=== PATIENT | male | born 1950 | race Caucasian/White ===

== ENCOUNTER 2016-11-07 17:36 | Emergency (ER) | payer OTHER ==
[~2016-11-07] VITALS: Ht 182.9 cm; Wt 86.3 kg
[~2016-11-07 17:36] MED LIST: .; ADVAIR 250/501 DISK IH; ALBUTEROL17 GM IH; ASPIR-LOW81 MG PO; ASPIR-TRIN325 M1 PO; Aspirin E.C. PO; CATAPRES0.1 MG PO; COUMADIN5 MG PO; Cipro PO; Combivent IH; Folvite PO; K-DUR20 MEQ PO; K-Dur PO; KEFLEX500 MG PO; Keppra PO; LEVAQUIN750 MG PO; LEVETIRACETAM500 MG PO; LEVOFLOXACIN750 MG PO; LIBRIUM25 MG PO; LIPITOR20 MG PO; LOPRESSOR25 MG PO; LOVENOX150 MG/1 M SC; METHADONE HCL10 MG PO; METHADONE10 MG; METHADONE10 MG PO; MYCOSTATIN15 GM PO; Methadone PO; NAPROSYN500 MG PO; NEURONTIN300 MG PO; NO HOME MEDS; NO MEDS; NOHOMEMEDS; NORVASC5 MG PO; NYSTATIN60 GM TP; OXYCONTIN80 MG; OXYCONTIN80 MG PO; OxyCONTIN PO; PERCOCET 5/31 TABLET PO; PREDNISONE10 MG PO; PROVENTIL,2.5 MG/3 M IH; SPIRIVA1 INHALATI IH; THERAGRAN1 TABLET PO; THIAMINE HCL100 MG PO; THIAMINE,VITAM100 MG PO; Theragran PO; Thiamine,Vitamin B1 PO; Toprol XL PO; VENTOLIN HFA18 GM IH; ZOFRAN ODT4 MG PO; ZOFRAN4 MG PO; [UNRECOGNIZED DRUG - CODE]; no home meds
[2016-11-07 21:37] VITALS: BP 126/74
== END 2016-11-07 21:40 | disposition home or self-care (01) ==
LOC: EME 17:36
DX: F10.229 Alcohol dependence with intoxication, unspecified (principal); J44.9 Chronic obstructive pulmonary disease, unspecified; M79.7 Fibromyalgia; B19.20 Unspecified viral hepatitis C without hepatic coma; Z86.73 Personal history of transient ischemic attack (TIA), and cerebral infarction without residual deficits; Z95.1 Presence of aortocoronary bypass graft; F17.200 Nicotine dependence, unspecified, uncomplicated
CPT/HCPCS: 99281; 99283

== ENCOUNTER 2016-11-08 00:39 | Emergency (ER) | payer OTHER ==
[~2016-11-08] VITALS: Ht 182.9 cm; Wt 90.4 kg
[2016-11-08 00:45] VITALS: BP 132/72
== END 2016-11-08 06:15 | disposition home or self-care (01) ==
LOC: EME 00:39
DX: F10.20 Alcohol dependence, uncomplicated (principal); Z95.1 Presence of aortocoronary bypass graft; Z87.891 Personal history of nicotine dependence
CPT/HCPCS: 99281; 99283

== ENCOUNTER 2016-11-08 19:18 | Emergency (ER) | payer OTHER ==
[~2016-11-08] VITALS: Ht 177.8 cm; Wt 96.3 kg
[2016-11-09 03:34] VITALS: BP 119/70
== END 2016-11-09 03:35 | disposition home or self-care (01) ==
LOC: EME 19:18
DX: F10.129 Alcohol abuse with intoxication, unspecified (principal); Z88.6 Allergy status to analgesic agent
CPT/HCPCS: 99281; 99282

== ENCOUNTER 2016-11-09 18:14 | Emergency (ER) | payer OTHER ==
[~2016-11-09] VITALS: Ht 177.8 cm; Wt 96.3 kg
[2016-11-10 10:17] VITALS: BP 152/88
== END 2016-11-10 10:17 | disposition home or self-care (01) ==
LOC: EME 18:14
DX: F10.120 Alcohol abuse with intoxication, uncomplicated (principal); S00.01XA Abrasion of scalp, initial encounter; X58.XXXA Exposure to other specified factors, initial encounter; J43.9 Emphysema, unspecified; J44.9 Chronic obstructive pulmonary disease, unspecified; I25.10 Atherosclerotic heart disease of native coronary artery without angina pectoris; Z87.891 Personal history of nicotine dependence; Z88.6 Allergy status to analgesic agent; Z88.4 Allergy status to anesthetic agent
CPT/HCPCS: 70450; 99281; 99283

== ENCOUNTER 2016-11-10 20:45 | Emergency (ER) | payer OTHER ==
[~2016-11-10] VITALS: Ht 182.9 cm; Wt 90.0 kg
[2016-11-11 09:50] VITALS: BP 168/88
== END 2016-11-11 09:51 | disposition home or self-care (01) ==
LOC: EME 20:45
DX: F10.229 Alcohol dependence with intoxication, unspecified (principal); Z59.0 Homelessness; Z87.891 Personal history of nicotine dependence
CPT/HCPCS: 99281; 99283

== ENCOUNTER 2016-11-11 17:12 | Emergency (ER) | payer OTHER ==
[~2016-11-11] VITALS: Ht 170.2 cm; Wt 95.3 kg
[2016-11-11 19:21] VITALS: BP 148/78
== END 2016-11-11 19:50 | disposition home or self-care (01) ==
LOC: EME 17:12
DX: F10.129 Alcohol abuse with intoxication, unspecified (principal); F17.200 Nicotine dependence, unspecified, uncomplicated
CPT/HCPCS: 99281; 99283

== ENCOUNTER 2016-11-12 00:12 | Emergency (ER) | payer OTHER ==
[~2016-11-12] VITALS: Ht 182.9 cm; Wt 90.0 kg
[2016-11-12 02:58] VITALS: BP 141/76
== END 2016-11-12 02:58 | disposition home or self-care (01) ==
LOC: EME 00:12
DX: F10.129 Alcohol abuse with intoxication, unspecified (principal)
CPT/HCPCS: 99281; 99283

== ENCOUNTER 2016-11-12 18:33 | Emergency (ER) | payer OTHER ==
[~2016-11-12] VITALS: Ht 182.9 cm; Wt 89.0 kg
[2016-11-12 18:46] VITALS: BP 152/89
== END 2016-11-12 19:42 | disposition left against medical advice (07) ==
LOC: EME 18:33
DX: F10.99 Alcohol use, unspecified with unspecified alcohol-induced disorder (principal); Z53.21 Procedure and treatment not carried out due to patient leaving prior to being seen by health care provider

== ENCOUNTER 2016-11-12 21:34 | Emergency (ER) | payer OTHER ==
[~2016-11-12] VITALS: Ht 182.9 cm; Wt 87.0 kg
[2016-11-13 07:34] VITALS: BP 148/92
== END 2016-11-13 07:35 | disposition home or self-care (01) ==
LOC: EME 21:34
DX: F10.129 Alcohol abuse with intoxication, unspecified (principal); Z87.891 Personal history of nicotine dependence
CPT/HCPCS: 99281; 99283

== ENCOUNTER 2016-11-13 18:40 | Emergency (ER) | payer OTHER ==
[~2016-11-13] VITALS: Ht 182.9 cm; Wt 90.9 kg
[2016-11-14 04:28] VITALS: BP 145/63
== END 2016-11-14 04:29 | disposition home or self-care (01) ==
LOC: EXP 18:40 → EME 18:40 → EXP 11-14 04:29
DX: F10.10 Alcohol abuse, uncomplicated (principal); Z87.891 Personal history of nicotine dependence; Z59.0 Homelessness
CPT/HCPCS: 99281; 99283

== ENCOUNTER 2016-11-14 21:38 | Emergency (ER) | payer OTHER ==
[~2016-11-14] VITALS: Ht 182.9 cm; Wt 88.9 kg
[2016-11-15 06:03] VITALS: BP 140/85
== END 2016-11-15 06:03 | disposition home or self-care (01) ==
LOC: EME 21:38
DX: R51 Headache (principal); F10.229 Alcohol dependence with intoxication, unspecified; Z87.891 Personal history of nicotine dependence
CPT/HCPCS: 99281; 99283

== ENCOUNTER 2016-11-15 17:33 | Emergency (ER) | payer OTHER ==
[~2016-11-15] VITALS: Ht 177.8 cm; Wt 100.0 kg
[2016-11-15 19:18] VITALS: BP 155/63
== END 2016-11-15 19:18 | disposition home or self-care (01) ==
LOC: EME → EXP 17:33 → EME 17:33 → EDBD 17:33 → EXP 19:18
DX: F10.229 Alcohol dependence with intoxication, unspecified (principal)
CPT/HCPCS: 99281; 99284

== ENCOUNTER 2016-11-15 22:33 | Emergency (ER) | payer OTHER ==
[~2016-11-15] VITALS: Ht 177.8 cm; Wt 100.0 kg
[2016-11-16 06:31] VITALS: BP 149/93
== END 2016-11-16 06:34 | disposition home or self-care (01) ==
LOC: EME 22:33
DX: F10.129 Alcohol abuse with intoxication, unspecified (principal)
CPT/HCPCS: 99281; 99283

== ENCOUNTER 2016-11-17 14:09 | Inpatient (IN) | payer OTHER ==
[~2016-11-17] VITALS: Ht 182.9 cm; Wt 95.5 kg
[2016-11-17 15:44] LABS: HEMATOCRIT 43.9 % (38.0-50.0); MCH 33.5 PG (29.0-34.0); MCHC 34.2 G/DL (30.0-36.0); RBC DIS.WIDTH-CV 13.9 % (11.8-14.6); RBC DIS.WIDTH-SD 47.4 % (39-53); RED BLOOD COUNT 4.48 M/uL (4.00-5.50)
[2016-11-17 15:54] LABS: CHLORIDE 98 mEq/L (99-109); POTASSIUM 3.8 mEq/L (3.7-5.4); SODIUM 138 mEq/L (136-147)
[2016-11-17 15:55] LABS: GLUCOSE 191 mg/dL (70-99)
[2016-11-17 15:57] LABS: ANION GAP 24 MEQ/L (2-14)
[2016-11-17 15:59] LABS: GFR ESTIMATE (CALCULATED) > 59 mL/min/
[2016-11-17 16:00] LABS: UREA NITROGEN (BUN) 9 mg/dL (9-23)
[2016-11-17 16:07] LABS: TROP-I INTERPRETATION NEGATIVE; TROPONIN-I < 0.01 ng/mL (0.0-0.30)
[2016-11-17 16:27] LABS: HEMATOLOGY COMMENT 1 SMEAR COMPATIBLE; PLATELET COUNT 107 K/uL (156-360)
[2016-11-17 17:38] LABS: SERUM ETHYL ALCOHOL 341 mg/dL
[2016-11-17 20:49] VITALS: BP 139/89
[2016-11-17 22:39] LABS: TROP-I INTERPRETATION NEGATIVE; TROPONIN-I 0.02 ng/mL (0.0-0.30)
[2016-11-17 23:30] VITALS: BP 160/83
[2016-11-18 04:00] VITALS: BP 160/92
[2016-11-18 07:27] LABS: HEMATOCRIT 37.3 % (38.0-50.0); MCH 33.2 PG (29.0-34.0); MCHC 33.8 G/DL (30.0-36.0); MCV 98.4 FL (86-99); MEAN PLAT.VOLUME 10.1 uM^3 (9.0-12.4); PLATELET COUNT 105 K/uL (156-360); RBC DIS.WIDTH-CV 14.1 % (11.8-14.6); RBC DIS.WIDTH-SD 50.2 % (39-53); RED BLOOD COUNT 3.79 M/uL (4.00-5.50); WHITE BLOOD COUNT 5.9 K/uL (4.1-10.2)
[2016-11-18 07:38] LABS: ANION GAP 11 MEQ/L (2-14); CHLORIDE 102 MEQ/L (99-109); GFR ESTIMATE (CALCULATED) > 59 mL/min/; MAGNESIUM 1.5 mg/dl (1.3-2.7); SAMPLE HEMOLYSIS CHECK 0; SAMPLE ICTERIC CHECK 0; SAMPLE LIPEMIA CHECK 0; SODIUM 140 MEQ/L (136-147); UREA NITROGEN (BUN) 7 mg/dL (9-23)
[2016-11-18 07:46] LABS: GLUCOSE 106 mg/dL (70-99); POTASSIUM 2.9 MEQ/L (3.7-5.4)
[2016-11-18 08:29] VITALS: BP 167/98
[2016-11-18 12:09] VITALS: BP 151/94
[2016-11-18 14:00] LABS: ANION GAP 9 MEQ/L (2-14); CHLORIDE 103 MEQ/L (99-109); GFR ESTIMATE (CALCULATED) > 59 mL/min/; GLUCOSE 142 mg/dL (70-99); SAMPLE HEMOLYSIS CHECK 0; SAMPLE ICTERIC CHECK 0; SAMPLE LIPEMIA CHECK 0; SODIUM 139 MEQ/L (136-147); UREA NITROGEN (BUN) 6 mg/dL (9-23)
[2016-11-18 15:00] VITALS: BP 151/90
[2016-11-18 20:49] VITALS: BP 170/95
[2016-11-18 23:39] VITALS: BP 161/95
[2016-11-19 04:49] VITALS: BP 150/88
[2016-11-19 07:12] LABS: HEMATOCRIT 39.5 % (38.0-50.0); MCH 33.4 PG (29.0-34.0); MCHC 33.4 G/DL (30.0-36.0); MEAN PLAT.VOLUME 10.2 uM^3 (9.0-12.4); PLATELET COUNT 94 K/uL (156-360); RBC DIS.WIDTH-CV 13.9 % (11.8-14.6); RBC DIS.WIDTH-SD 50.5 % (39-53); RED BLOOD COUNT 3.95 M/uL (4.00-5.50); WHITE BLOOD COUNT 5.3 K/uL (4.1-10.2)
[2016-11-19 07:41] LABS: ANION GAP 10 MEQ/L (2-14); CHLORIDE 104 MEQ/L (99-109); GFR ESTIMATE (CALCULATED) > 59 mL/min/; MAGNESIUM 1.5 mg/dl (1.3-2.7); POTASSIUM 3.5 MEQ/L (3.7-5.4); SAMPLE HEMOLYSIS CHECK 0; SAMPLE ICTERIC CHECK 0; SAMPLE LIPEMIA CHECK 0; SODIUM 138 MEQ/L (136-147); UREA NITROGEN (BUN) 5 mg/dL (9-23)
[2016-11-19 07:43] LABS: GLUCOSE 94 mg/dL (70-99)
[2016-11-19 07:57] VITALS: BP 161/98
[2016-11-19 11:04] VITALS: BP 147/91
[2016-11-19 15:16] VITALS: BP 151/93
[2016-11-19 20:17] VITALS: BP 168/105
[2016-11-20 06:18] LABS: HEMATOCRIT 42.8 % (38.0-50.0); MCHC 32.9 G/DL (30.0-36.0); MCV 100.2 FL (86-99); MEAN PLAT.VOLUME 9.6 uM^3 (9.0-12.4); PLATELET COUNT 104 K/uL (156-360); RBC DIS.WIDTH-SD 50.4 % (39-53); RED BLOOD COUNT 4.27 M/uL (4.00-5.50); WHITE BLOOD COUNT 5.6 K/uL (4.1-10.2)
[2016-11-20 06:43] LABS: ANION GAP 10 MEQ/L (2-14); CHLORIDE 102 MEQ/L (99-109); GFR ESTIMATE (CALCULATED) > 59 mL/min/; GLUCOSE 98 mg/dL (70-99); MAGNESIUM 1.5 mg/dl (1.3-2.7); POTASSIUM 3.9 MEQ/L (3.7-5.4); SAMPLE HEMOLYSIS CHECK 0; SAMPLE ICTERIC CHECK 0; SAMPLE LIPEMIA CHECK 0; SODIUM 136 MEQ/L (136-147); UREA NITROGEN (BUN) 8 mg/dL (9-23)
[2016-11-20 11:27] VITALS: BP 175/106
[2016-11-20 11:43] LABS: IRON 51 MCG/DL (35-150)
[2016-11-20 11:48] LABS: FERRITIN 194 NG/ML (22-322)
[2016-11-20 12:51] VITALS: BP 172/104
[2016-11-20 15:10] VITALS: BP 140/82
[2016-11-21 06:59] LABS: HEMATOCRIT 42.4 % (38.0-50.0); MCHC 33.5 G/DL (30.0-36.0); MCV 101.4 FL (86-99); MEAN PLAT.VOLUME 10.1 uM^3 (9.0-12.4); PLATELET COUNT 115 K/uL (156-360); RBC DIS.WIDTH-CV 14.3 % (11.8-14.6); RBC DIS.WIDTH-SD 52.6 % (39-53); RED BLOOD COUNT 4.18 M/uL (4.00-5.50)
[2016-11-21 07:26] LABS: ANION GAP 10 MEQ/L (2-14); CHLORIDE 103 MEQ/L (99-109); GFR ESTIMATE (CALCULATED) > 59 mL/min/; GLUCOSE 119 mg/dL (70-99); POTASSIUM 4.2 MEQ/L (3.7-5.4); SAMPLE HEMOLYSIS CHECK 0; SAMPLE ICTERIC CHECK 0; SAMPLE LIPEMIA CHECK 0; SODIUM 136 MEQ/L (136-147); UREA NITROGEN (BUN) 11 mg/dL (9-23)
[2016-11-22] VITALS: BP 162/89
[2016-11-22 15:58] VITALS: BP 108/94
[2016-11-22 19:49] VITALS: BP 122/78
[2016-11-23 08:00] VITALS: BP 143/86
[2016-11-23 08:22] LABS: HEMATOCRIT 45.3 % (38.0-50.0); MCH 34.7 PG (29.0-34.0); MCHC 33.8 G/DL (30.0-36.0); MCV 102.7 FL (86-99); RBC DIS.WIDTH-CV 14.1 % (11.8-14.6); RBC DIS.WIDTH-SD 52.8 % (39-53); RED BLOOD COUNT 4.41 M/uL (4.00-5.50); WHITE BLOOD COUNT 6.5 K/uL (4.1-10.2)
[2016-11-23 08:45] LABS: ANION GAP 11 MEQ/L (2-14); CHLORIDE 103 MEQ/L (99-109); GFR ESTIMATE (CALCULATED) > 59 mL/min/; GLUCOSE 109 mg/dL (70-99); POTASSIUM 4.4 MEQ/L (3.7-5.4); SAMPLE HEMOLYSIS CHECK 0; SAMPLE ICTERIC CHECK 0; SAMPLE LIPEMIA CHECK 0; SODIUM 138 MEQ/L (136-147); UREA NITROGEN (BUN) 20 mg/dL (9-23)
[2016-11-23 08:55] LABS: MEAN PLAT.VOLUME 9.7 uM^3 (9.0-12.4); PLATELET COUNT 191 K/uL (156-360)
[2016-11-23 15:53] VITALS: BP 140/68
[2016-11-23 23:18] VITALS: BP 138/73
[2016-11-24 07:58] VITALS: BP 140/82
[2016-11-24 16:32] VITALS: BP 137/80
[2016-11-24 22:56] VITALS: BP 134/77
[2016-11-25 07:44] VITALS: BP 136/82
[2016-11-25 09:03] LABS: HEMATOCRIT 44.4 % (38.0-50.0); MCH 33.7 PG (29.0-34.0); MCHC 33.3 G/DL (30.0-36.0); MCV 101.1 FL (86-99); RBC DIS.WIDTH-CV 13.5 % (11.8-14.6); RBC DIS.WIDTH-SD 50.2 % (39-53); RED BLOOD COUNT 4.39 M/uL (4.00-5.50)
[2016-11-25 09:10] LABS: MEAN PLAT.VOLUME 9.7 uM^3 (9.0-12.4)
[2016-11-25 09:18] LABS: PLATELET COUNT 256 K/uL (156-360)
[2016-11-25 09:40] LABS: ANION GAP 9 MEQ/L (2-14); CHLORIDE 103 MEQ/L (99-109); GFR ESTIMATE (CALCULATED) > 59 mL/min/; GLUCOSE 95 mg/dL (70-99); POTASSIUM 4.6 MEQ/L (3.7-5.4); SAMPLE HEMOLYSIS CHECK 0; SAMPLE ICTERIC CHECK 0; SAMPLE LIPEMIA CHECK 0; SODIUM 136 MEQ/L (136-147); UREA NITROGEN (BUN) 22 mg/dL (9-23)
[2016-11-25 15:36] VITALS: BP 142/68
[2016-11-26 06:23] LABS: HEMATOCRIT 42.9 % (38.0-50.0); MCH 34.1 PG (29.0-34.0); MCHC 33.6 G/DL (30.0-36.0); MCV 101.7 FL (86-99); PLATELET COUNT 290 K/uL (156-360); RBC DIS.WIDTH-CV 13.5 % (11.8-14.6); RBC DIS.WIDTH-SD 49.4 % (39-53); RED BLOOD COUNT 4.22 M/uL (4.00-5.50); WHITE BLOOD COUNT 6.2 K/uL (4.1-10.2)
[2016-11-26 06:47] LABS: ANION GAP 9 MEQ/L (2-14); CHLORIDE 103 MEQ/L (99-109); GFR ESTIMATE (CALCULATED) > 59 mL/min/; GLUCOSE 94 mg/dL (70-99); POTASSIUM 4.2 MEQ/L (3.7-5.4); SAMPLE HEMOLYSIS CHECK 0; SAMPLE ICTERIC CHECK 0; SAMPLE LIPEMIA CHECK 0; SODIUM 137 MEQ/L (136-147); UREA NITROGEN (BUN) 20 mg/dL (9-23)
[2016-11-26 07:46] VITALS: BP 106/56
[2016-11-27] VITALS: BP 115/68
[2016-11-27 08:00] VITALS: BP 126/68
[2016-11-27 15:49] VITALS: BP 124/66
[2016-11-28] VITALS: BP 124/71
[2016-11-28 07:55] VITALS: BP 136/62
[2016-11-28 23:36] VITALS: BP 120/81
[2016-11-29 08:00] VITALS: BP 132/70
[2016-11-29 16:04] VITALS: BP 130/69
[2016-11-30] VITALS: BP 137/77
[2016-11-30 08:02] VITALS: BP 128/69
[2016-11-30 16:10] VITALS: BP 132/68
[2016-12-01 06:21] VITALS: BP 121/79
[2016-12-01 15:45] VITALS: BP 127/87
[2016-12-02] VITALS: BP 106/60
[2016-12-02 08:51] VITALS: BP 118/82
[2016-12-02 14:46] VITALS: BP 128/67
[2016-12-03] VITALS: BP 127/81
[2016-12-03 07:44] VITALS: BP 113/65
[2016-12-03 16:00] VITALS: BP 126/72
[2016-12-04 07:29] VITALS: BP 117/85
[2016-12-04 16:36] VITALS: BP 128/67
[2016-12-04 23:51] VITALS: BP 132/75
[2016-12-05 07:24] VITALS: BP 106/55
[2016-12-05 14:55] VITALS: BP 116/63
[2016-12-06 00:11] VITALS: BP 138/71
[2016-12-06 08:11] VITALS: BP 126/75
[2016-12-06 15:53] VITALS: BP 118/57
[2016-12-07 00:20] VITALS: BP 128/74
[2016-12-07 07:36] VITALS: BP 119/71
[2016-12-07 15:19] VITALS: BP 122/84
[2016-12-08 07:33] VITALS: BP 116/66
[2016-12-09 00:01] VITALS: BP 111/58
[2016-12-09 16:15] VITALS: BP 150/92
[2016-12-09] MEDS ORDERED: Thiamine,Vitamin B1 PO (16:39)
[2016-12-09] MEDS ORDERED: CYANOCOBALAM1000 MCG PO (16:39)
[2016-12-09] MEDS ORDERED: FOLIC ACID1 MG PO (16:39)
[2016-12-09] MEDS ORDERED: AMLODIPINE BESYL5 MG PO (16:39)
== END 2016-12-09 18:09 | DRG 897 ==
LOC: EME 14:09 → 5SOUTH 16:55 → EDOF 16:55 → 5SOUTH 20:28
PROVIDERS: Emergency Medicine; Hospitalist; Internal Medicine; Physician Assistant; Physician Assistant Medical
DX: F10.27 Alcohol dependence with alcohol-induced persisting dementia (principal); F10.230 Alcohol dependence with withdrawal, uncomplicated; G40.89 Other seizures; E87.2 Acidosis; F19.230 Other psychoactive substance dependence with withdrawal, uncomplicated; D69.6 Thrombocytopenia, unspecified; K70.30 Alcoholic cirrhosis of liver without ascites; F01.50 Vascular dementia, unspecified severity, without behavioral disturbance, psychotic disturbance, mood disturbance, and anxiety; J44.9 Chronic obstructive pulmonary disease, unspecified; B19.20 Unspecified viral hepatitis C without hepatic coma; E87.6 Hypokalemia; K76.0 Fatty (change of) liver, not elsewhere classified; I10 Essential (primary) hypertension; E53.8 Deficiency of other specified B group vitamins; F17.210 Nicotine dependence, cigarettes, uncomplicated; Z59.0 Homelessness; Z86.73 Personal history of transient ischemic attack (TIA), and cerebral infarction without residual deficits
CPT/HCPCS: 70450; 71010; 80048; 80048 91; 81003; 82140; 82607; 82728; 82746; 83540; 83735; 84100; 84443; 84466; 84484; 85027; 93005; 97530 GO; 99202; 99281; 99283; 99284; 99285; G0480; J1630; J1650; J2250; J3411; J3475; J3480; J7030; J7042; S0028

== ENCOUNTER 2017-03-15 12:34 | Emergency (ER) | payer OTHER ==
[~2017-03-15] VITALS: Ht 177.8 cm; Wt 97.0 kg
[~2017-03-15 12:34] MED LIST changes: +AMLODIPINE BESYL5 MG PO; +CYANOCOBALAM1000 MCG PO; +FOLIC ACID1 MG PO
[2017-03-15 13:50] LABS: HEMATOCRIT 45.2 % (38.0-50.0); MCH 30.5 PG (29.0-34.0); MCHC 34.1 G/DL (30.0-36.0); MCV 89.5 FL (86-99); MEAN PLAT.VOLUME 9.6 uM^3 (9.0-12.4); PLATELET COUNT 245 K/uL (156-360); RBC DIS.WIDTH-CV 13.1 % (11.8-14.6); RBC DIS.WIDTH-SD 42.4 % (39-53); RED BLOOD COUNT 5.05 M/uL (4.00-5.50); WHITE BLOOD COUNT 9.4 K/uL (4.1-10.2)
[2017-03-15 13:52] LABS: ADD MIUA? NO; BILIRUBIN NEGATIVE; BLOOD NEGATIVE; COLOR YELLOW ((YELLOW)); GLUCOSE (STRIP) NEGATIVE; KETONES NEGATIVE; LEUKOCYTES NEGATIVE; NITRITE NEGATIVE; PROTEIN (STRIP) NEGATIVE; SPECIFIC GRAVITY 1.014 (1.000-1.030); UCUL ADDED? NO; UROBILINOGEN 0.2 MG/DL (0.2-1.0)
[2017-03-15 14:00] LABS: CHLORIDE 104 mEq/L (99-109); POTASSIUM 4.2 mEq/L (3.7-5.4); SODIUM 139 mEq/L (136-147)
[2017-03-15 14:02] LABS: GLUCOSE 102 mg/dL (70-99)
[2017-03-15 14:03] LABS: ANION GAP 13 MEQ/L (2-14)
[2017-03-15 14:04] LABS: TOTAL BILIRUBIN 0.4 mg/dL (0.0-1.0)
[2017-03-15 14:05] LABS: ALKALINE PHOSPHATASE 102 IU/L (3-129); SERUM ETHYL ALCOHOL < 10 mg/dL
[2017-03-15 14:06] LABS: GFR ESTIMATE (CALCULATED) > 59 mL/min/
[2017-03-15 14:07] LABS: UREA NITROGEN (BUN) 12 mg/dL (9-23)
[2017-03-15 15:41] VITALS: BP 150/98
== END 2017-03-15 16:27 ==
LOC: EME 12:34
PROVIDERS: Emergency Medicine
DX: F43.20 Adjustment disorder, unspecified (principal); J45.909 Unspecified asthma, uncomplicated
CPT/HCPCS: 80053; 81003; 82140; 85027; 99281; 99285; G0480; J1630; J2060